=== PATIENT | female | born 1960 | race Caucasian/White ===

== ENCOUNTER → 2021-01-31 16:57 | Outpatient (CLI) | payer OTHER, SELFPAY ==
[2021-01-31 17:41] LABS: UR Morphine/Opiate cutoff 300 Negative (Negative); Ur Creatinine Normal (Normal); Ur Specific Gravity Normal (Normal); Urine Amphetamines Negative (Negative); Urine Cocaine Negative (Negative); Urine Methamphetamines Negative (Negative); Urine Phencyclidine Negative (Negative); Urine Tetrahydrocannabinol Negative (Negative); Urine pH Normal (Normal)
[2021-01-31 17:42] LABS: Urine Barbiturates Negative (Negative); Urine Benzodiazepines Negative (Negative); Urine MDMA Negative (Negative); Urine Methadone Negative (Negative); Urine Oxycodone Negative (Negative); Urine Tricyclic Antidepressant Negative (Negative)
== END ==
PROVIDERS: Family Provider Physician Assistant; PCP Registered Nurse Diabetes Educator; Referring Provider Registered Nurse Diabetes Educator; Visit Provider Registered Nurse Diabetes Educator
DX: Z51.81 Encounter for therapeutic drug level monitoring (principal); Z79.891 Long term (current) use of opiate analgesic
CPT/HCPCS: 80305

== ENCOUNTER → 2022-09-09 10:59 | Outpatient (CLI) | payer OTHER, SELFPAY ==
[2022-09-09 12:17] LABS: COVID19 -Nasal RAPID Negative (Negative)
== END ==
PROVIDERS: Family Provider Physician Assistant; PCP Registered Nurse Diabetes Educator; Visit Provider Registered Nurse Diabetes Educator
DX: R06.02 Shortness of breath (principal); R05.9 Cough, unspecified; R51.9 Headache, unspecified
CPT/HCPCS: 87635

== ENCOUNTER → 2022-09-09 11:15 | Outpatient (CLI) | payer OTHER, SELFPAY ==
--- NOTE | 2022-09-09 11:19 | DI.RAD.S_ITS ---
PROCEDURE: XR CHEST 2V INDICATIONS: eval BLL rales, SOB, R/O pnemonia TECHNIQUE: 2 views of the chest were acquired. COMPARISON: None. FINDINGS: Surgical changes and devices: None. Lungs and pleura: Reticulonodular airspace opacity in the lung bases. Increased interstitial markings in the central/perihilar lungs. Cephalization of pulmonary vessels. No pleural effusions or pneumothorax. Mediastinum: Mediastinal contours are normal. Heart size is normal. Bones and chest wall: No suspicious bony abnormalities. Soft tissues appear unremarkable. IMPRESSION: Findings of mild pulmonary vascular congestion with mild to moderate interstitial edema. Patchy airspace opacity in the lower lobes could represent developing alveolar edema versus a superimposed infectious process. Correlate with CBC, BNP, and other lung auscultation findings. Dictated by: Daquan Gotti M.D. on 09/09/2022 at 12:10 Approved by: Daquan Gotti M.D. on 09/09/2022 at 12:11
== END ==
PROVIDERS: Family Provider Physician Assistant; PCP Registered Nurse Diabetes Educator; Referring Provider Registered Nurse Diabetes Educator; Visit Provider Registered Nurse Diabetes Educator
DX: R06.02 Shortness of breath (principal); R05.9 Cough, unspecified; R51.9 Headache, unspecified; R09.89 Other specified symptoms and signs involving the circulatory and respiratory systems; Z20.822 Contact with and (suspected) exposure to COVID-19
CPT/HCPCS: 71046; 87635

== ENCOUNTER → 2022-12-03 13:13 | Outpatient (CLI) | payer OTHER, SELFPAY ==
[2022-12-03 13:55] LABS: Appearance Urine UA SL CLOUDY; Bilirubin Urine UA NEGATIVE (NEGATIVE); Color Urine UA YELLOW; Glucose Urine UA NEGATIVE (Negative); Ketones Urine UA TRACE (NEGATIVE); Leukocyte Esterase Urine UA 2+ (NEGATIVE); Nitrite Urine UA NEGATIVE (Negative); Occult Blood Urine UA 2+ (Negative); Protein Urine UA 1+ (Negative); Urobilinogen Urine UA 0.2 E.U./dL (0.2)
[2022-12-03 13:57] LABS: Add Manual Diff / Slide Review NO; Basophils Absolute Auto 100 /uL (0-100); Basophils Percent Auto 0.8 % (0-2); Eosinophils Absolute Auto 200 /uL (0-450); Eosinophils Percent Auto 2.8 % (2-4); Hematocrit 36.5 % (36-46); Hemoglobin 12.1 g/dL (12.0-16.0); Lymphocytes Absolute Auto 2100 /uL (1100-4500); Lymphocytes Percent Auto 24.8 % (25-40); Mean Corpuscular HGB Conc 33.3 % (30-36); Mean Corpuscular Volume 96.1 fL (80-100); Monocytes Absolute Auto 700 /uL (0-900); Monocytes Percent Auto 8.2 % (3-14); Neutrophils Absolute Auto 5200 /uL (1500-7000); Neutrophils Percent Auto 63.4 % (50-75); Platelet Count 425 X10^3/uL (150-400); Red Blood Cell Count 3.79 X10^6/uL (4.0-5.2); Red Cell Distribution Width 13.9 % (11.6-14.8); White Blood Cell Count 8.3 X10^3/uL (4.5-11.0)
[2022-12-03 14:07] LABS: Hemoglobin A1C% w Est Avg Glu 5.5 % (4.0-6.0)
[2022-12-03 14:08] LABS: Bacteria Urine Many (>30); Culture Indicated Urine Specimen Cultured; RBC Urine 1-5/HPF (0-5/HPF); Squamous Epithelial Cell Urine 1-5 /HPF (0-5/HPF); WBC Urine 30-100/HPF (0-5/HPF)
[2022-12-03 14:12] LABS: BUN Creatinine Ratio 27.7 (6-22); Blood Urea Nitrogen 31 mg/dL (7-17); Calcium 9.5 mg/dL (8.4-10.2); Carbon Dioxide 30 mmol/L (22-32); Chloride 96 mmol/L (98-107); Estimated Glomerular Filt Rate 56 mL/min (>60); Glucose 100 mg/dL (80-110); HEMOLYSIS < 15 (0-50); Potassium 3.5 mmol/L (3.4-5.1); Sodium 139 mmol/L (137-145)
[2022-12-03 14:22] LABS: COVID19 -Nasal RAPID Negative (Negative)
== END ==
PROVIDERS: Family Provider Physician Assistant; PCP Registered Nurse Diabetes Educator; Referring Provider Orthopaedic Surgery; Visit Provider Orthopaedic Surgery
DX: Z01.818 Encounter for other preprocedural examination (principal); Z01.812 Encounter for preprocedural laboratory examination; R73.9 Hyperglycemia, unspecified; N39.0 Urinary tract infection, site not specified; Z20.822 Contact with and (suspected) exposure to COVID-19
CPT/HCPCS: 36415; 80048; 81001; 83036; 85025; 87077; 87086; 87186; 87635; 93005; 93010; C9803

== ENCOUNTER 2022-12-05 12:11 | Day surgery (SDC) | payer OTHER, SELFPAY ==
[2022-12-03 08:40] VITALS: BMI 44.4
[2022-12-05] VITALS (11 sets, daily range): BP systolic 98–129; BP diastolic 42–75; PULSE 81–94; RESP 12–19; TEMP 35.3–36.6; O2SAT 91–95; BMI 44.4
[2022-12-05] MEDS: PREGABALIN 75 MG CAPSULE PO (13:03)
[2022-12-05] MEDS: CELECOXIB 200 MG CAPSULE PO (13:03)
[2022-12-05] MEDS: ACETAMINOPHEN 325 MG TABLET 975 MG PO (13:03)
[2022-12-05] MEDS: LACTATED RINGERS 1,000 ML 42 ML IV ×2 (13:13→16:51)
[2022-12-05] MEDS: VANCOMYCIN 1,000 MG/200 ML PIGGYBACK 200 MG IV (13:19)
--- NOTE | 2022-12-05 14:00 | DI.RAD.S_ITS ---
PROCEDURE: XR PELVIS 1-2V INDICATIONS: prosthesis placement TECHNIQUE: Intra-operative view of the pelvis and hip acquired. COMPARISON: None. FINDINGS: Bones: Intraoperative devices prior to placement of arthroplasty prostheses are in expected positions. No fractures or suspicious bony lesions. Soft tissues: Overlying surgical retractors are present, along with other intraoperative changes. IMPRESSION: Left total hip arthroplasty in progress Approved by: Serjio Polo M.D. on 12/06/2022 at 14:40
--- NOTE | 2022-12-05 14:46 | P.OP_ITS ---
Operative Date/Time/Diagnoses Date of procedure: 12/05/22 Time of procedure: 14:50 Pre-op diagnosis: Severe left hip osteoarthritis, morbid obesity Post-op diagnosis: same Procedure & Clinicians Procedure: Left total hip arthroplasty posterior approach Same procedure as scheduled: Yes Indications: The patient has had progressively worsening left hip pain with radiographic changes consistent with arthritis. Non-operative management has failed and the patient has requested total hip replacement. The risks, benefits and alternatives to surgery were discussed with the patient prior to proceeding. Risks discussed included, but were not limited to, failure to relieve pain, leg length discrepancy, dislocation, stiffness, infection, nerve damage, deep venous thrombosis, pulmonary embolism, stroke, coma, heart attack, permanent paralysis and , as well as the potential need for eventual revision of the prosthetic. Surgeon: Faiza Dillon Biodiesel Processing Technician: Dodie Damon Anesthesia Type: General and Spinal Operative Notes Findings: Severe left hip arthritis, adequate stability Closure Type: primary Specimen(s): none sent Prosthetic devices, grafts, tissues, transplants, or devices: Dillon [employer] Nephew size 48 R3 cup, Synergy size 10 femoral component, neutral poly liner, one 6.5 mm screw, 32 x +0 Oxinium femoral head Estimated Blood Loss (mL): 250 Blood products transfused: none Procedure in detail: The patient was seen in the pre-operative area, where the patient identified the left hip as the operative site and this was marked with my initials. The patient received pre-operative antibiotics and was taken to the operating room and placed on the operative table in the right lateral decubitus position after satisfactory anesthesia. A time clock repairer out was performed. The left leg was prepared from the ankle to the iliac crest with ChloroPrep in the usual fashion and draped through sterile drapes. The hip was approached through an approximately 20 cm incision centered over the greater trochanter and curving gently posteriorly as it went proximally. This was carried sharply to the fascia letty, which was divided and retracted with a self retaining retractor. The trochanteric bursa was excised with care being taken to avoid the sciatic nerve, which was identified and protected throughout the case. The short external rotators were incised and the capsulomuscular flap was raised and tagged for later repair. The hip was dislocated, and a femoral neck osteotomy performed approximately 15 mm above the lesser trochanter. Meticulous incision was made and meticulous hemostasis was performed. She did have substantial subcutaneous tissues. Retractors were placed around the femur. The canal was opened with a box cutting osteotome, followed by a T handled reamer and a lateralizing reamer. The canal was reamed up to size was then used, followed by sequential broaching until there was good stability of the broach in the femur. Retractors were placed to expose the acetabulum. The labrum and central soft tissues were removed. Reaming was performed initially going up in 2 mm increments, then 1 mm increments until good bite was obtained with an odd sized reamer. The cup 1 mm larger than the last reamer was then inserted using the appropriate anteversion guides. It was further stabilized with a single screw. A trial neutral liner was placed. The broach was placed in the canal. A trial head and neck were then placed and the hip relocated and checked for leg length and stability. An intraoperative film confirmed the component position and no evidence of fracture. The patient was stable in the position of sleep, of squatting, and could be put through a range of motion with 45 degrees internal rotation without dislocation. At 90 degrees flexion, internal rotation to 70? was possible before dislocation. This was felt to be satisfactory and the appropriate components were opened, and the trials were removed. There was min a minimal crack along the femoral neck residual which did not extend to the level of the lesser trochanter or calcar. The acetabular liner was impacted into position. The final stem was then impacted into the prepared femoral canal. A brief Betadine soak was performed while trialing with head options. The hip was meticulously irrigated with normal saline. Finally the femoral head was impacted onto the stem. The acetabulum was cleared of all material and the hip relocated one final time. The capsulomuscular flap was then repaired to the greater trochanter though an awl hole using the tag sutures. The short external rotators were repaired with a nonabsorbable suture. A deep drain was placed and brought out anteriorly. The fascia letty was closed with Vicryl. The subcutaneous layer was closed with barbed sutures and skin daniela. A richard dressing was applied and the patient was taken to recovery having tolerated the procedure well. Complications: none Post-operative Condition: stable Disposition: Acute Care Plan for aftercare: The patient will be maintained on a standard total hip replacement protocol with weight bearing as tolerated and posterior hip precautions. The patient will receive Aspirin and sequential compression devices for DVT prophylaxis. The patient will be discharged home when safe for the home environment.
--- NOTE | 2022-12-05 14:46 | PM.PREOP ---
Pre-operative Note COVID-19 COVID-19 status: Negative Interval Note History & Physical reviewed/Exam performed by Physician: Yes Changes to H&P: No H&P completed within 30 days and has changed as indicated here:: patient is doing well, no recent pulmonary problems
--- NOTE | 2022-12-05 14:56 | SUR.OPER ---
Lateral on padded OR bed. Gel axillary roll. Arms secured on padded armboard with pillow supporting top arm. Padded hip positioner braces x4 - anterior and posterior chest and pelvis. Additional gel pad used anterior pelvis. Gel pad under bottom leg from knee to foot and secured with tape over sheet.
[2022-12-05] MEDS: CEFAZOLIN 2 GM/100 ML PREMIX 100 ML IV ×2 (15:03→21:10)
[2022-12-05] MEDS: TRANEXAMIC ACID 1,000 MG VIAL 1000 MG INJ ×2 (15:53→17:22)
[2022-12-05] MEDS: BUPIVACAINE 0.5% W/ EPI (PF) 30 ML VIAL INJ (15:54)
[2022-12-05] MEDS: BUPIVACAINE LIPOSOME 266 MG/20 ML VIAL INJ (15:55)
[2022-12-05] MEDS: EPINEPHrine 1 MG/ML IRR (17:27)
--- NOTE | 2022-12-05 17:27 | DI.RAD.S_ITS ---
PROCEDURE: XR HIP W PEL IF DONE LT 2V INDICATIONS: TOTAL LEFT HIP ARTHROPLASTY TECHNIQUE: AP pelvis and lateral view of the left hip acquired. COMPARISON: None. FINDINGS: Bones: Patient is status post left total hip arthroplasty, with hardware components in expected positions. The hip joint appears congruent. The visualized bony structures appear intact. Soft tissues: Overlying postoperative changes are noted. No suspicious soft tissue densities. IMPRESSION: Status post left total hip arthroplasty without evidence for acute hardware complication. Dictated by: Gerald Castillo M.D. on 12/05/2022 at 20:23 Approved by: Gerald Castillo M.D. on 12/05/2022 at 20:23
[2022-12-05] MEDS: BACITRACIN 28 GM OINT 1 APPLIC TOP (17:28)
[2022-12-05] MEDS: ONDANSETRON 4 MG/2 ML INJ IV (18:43)
[2022-12-05] MEDS: OXYCODONE IR 5 MG TABLET PO (18:43)
--- NOTE | 2022-12-05 19:11 | SUR.PHASEI ---
1856 report called to Dolly CARDENAS, no changes to exam
--- NOTE | 2022-12-05 19:50 | PC.NURSE ---
Pt arrived to Room 218 at 1902 this evening. A&Ox4, VSS, afebrile on RA. CHERIE goldberg, c/d/i. +CMS to RLE. Offered sips of water. Reviewed hip precautions, oriented to room. Reported off, endorsed admission to oncoming RN.
[2022-12-05] MEDS: IBUPROFEN 400 MG TABLET PO ×2 (20:30→23:11)
[2022-12-05] MEDS: METOPROLOL ER 25 MG TABLET 37.5 MG PO (20:30)
[2022-12-05] MEDS: ATORVASTATIN 20 MG TABLET PO (20:31)
[2022-12-05] MEDS: LACTATED RINGERS 1,000 ML 125 ML IV (20:31)
[2022-12-05] MEDS: CYCLOBENZAPRINE 10 MG TABLET PO (20:31)
[2022-12-05] MEDS: ACETAMINOPHEN 325 MG TABLET 650 MG PO ×2 (20:31→23:11)
[2022-12-05] MEDS: DOCUSATE 100 MG CAPSULE PO (20:31)
[2022-12-05] MEDS: ASPIRIN EC 81 MG TABLET PO (20:31)
[2022-12-05] MEDS: OXYCODONE IR 10 MG TABLET PO (21:15)
[2022-12-06] MEDS: OXYCODONE IR 10 MG TABLET PO ×3 (02:19→14:51)
[2022-12-06 03:20] VITALS: BP 114/45; PULSE 89; RESP 19; TEMP 36.2; O2SAT 96
--- NOTE | 2022-12-06 04:27 | PC.NURSE ---
Pt is Axox4, needs 2 person assistance to the bathroom with FWW. Pt voided and drinking well. Pt c/o pain and recieved PRN PO Oxy 10 x2 with good effect. Otherwise, no changes. continue monitor.
[2022-12-06] MEDS: ACETAMINOPHEN 325 MG TABLET 650 MG PO ×2 (05:08→12:30)
[2022-12-06] MEDS: CEFAZOLIN 2 GM/100 ML PREMIX 100 ML IV (05:08)
[2022-12-06] MEDS: IBUPROFEN 400 MG TABLET PO ×2 (05:08→12:30)
[2022-12-06 05:20] LABS: Hematocrit 27.8 % (36-46); Hemoglobin 9.7 g/dL (12.0-16.0)
--- NOTE | 2022-12-06 06:56 | PM.DS.1 ---
History of Present Illness History of Present Illness Date Patient Seen: 12/06/22 Time Patient Seen: 06:56 Chief complaint: OPB Narrative: Operative Date/Time/Diagnoses Date of procedure: 12/05/22 Time of procedure: 14:50 Pre-op diagnosis: Severe left hip osteoarthritis, morbid obesity Post-op diagnosis: same Procedure & Clinicians Procedure: Left total hip arthroplasty posterior approach Same procedure as scheduled: Yes Indications: The patient has had progressively worsening left hip pain with radiographic changes consistent with arthritis. Non-operative management has failed and the patient has requested total hip replacement. The risks, benefits and alternatives to surgery were discussed with the patient prior to proceeding. Risks discussed included, but were not limited to, failure to relieve pain, leg length discrepancy, dislocation, stiffness, infection, nerve damage, deep venous thrombosis, pulmonary embolism, stroke, coma, heart attack, permanent paralysis and , as well as the potential need for eventual revision of the prosthetic. Surgeon: Faiza Dillon Electrical Appliance Repairer: Dodie Damon Anesthesia Type: General and Spinal Operative Notes Findings: Severe left hip arthritis, adequate stability Closure Type: primary Specimen(s): none sent Prosthetic devices, grafts, tissues, transplants, or devices: Dillon [employer]hew size 48 R3 cup, Synergy size 10 femoral component, neutral poly liner, one 6.5 mm screw, 32 x +0 Oxinium femoral head Estimated Blood Loss (mL): 250 Blood products transfused: none Discharge Providers Provider Discharge Date: 12/06/22 Primary care physician: LALITHA Peguero Consults: 12/05/22 06:00 Consult to Anesthesiology Routine Comment: Consulting Provider: Anesthesiologist Reason for consultation: Regional block for post operative pain control 12/05/22 19:32 Consult to Discharge Planning Routine Comment: Consult to Physical Therapy Evaluate & Treat Comment: Physician Instructions: post op RONA protocol Discharge provider: Aranza Jimenes PA-C Summary Hospital Course Discharge Diagnosis: Severe left hip osteoarthritis, s/p left total hip arthroplasty Hospital Course: Ms Rosales's hospital course was unremarkable. On POD# 1 she was feeling well and wanted to go home. She was eating and voiding without difficulty. She had not yet been evaluated by PT. Her pain was well-controlled with oral medication. Exam Vital Signs (past 8 hours): - 12/05/22 23:07 12/05/22 23:10 12/06/22 03:20 Temperature 97.2 F L Pulse Rate 85 88 89 Respiratory Rate 19 19 Blood Pressure 110/46 L 110/46 L 114/45 L Pulse Oximetry 94 96 Oxygen Flow Rate 0 0 Oxygen Delivery Method Room Air Oxygen Flow Rate 0 Narrative Exam Narrative: 5/5 strength in hip flexors, quadriceps, hamstrings, DF, PF, EHL on left. Sensation to light touch intact throughout LLE. Calves soft, compressible, nontender and without palpable cords or masses. CHERIE dressing CDI; dressing was not active upon my visit and was reset and functional without further intervention. Objective Labs Result Diagrams: 12/06/22 04:50 Labs: Laboratory Results - last 24 hr 12/06/22 04:50 Hgb 9.7 L Hct 27.8 L PFSH Medical History (Updated 12/03/22 @ 08:49 by Lashonda Harrell RN) BMI 40.0-44.9, adult Chronic hip pain Chronic low back pain with sciatica Chronic, continuous use of opioids COVID-19 virus infection (11/14/22) Surgical History Status post arthroscopy Social History household members: spouse Smoking Status: Current every day smoker Tobacco: How many years used: 40 quit status: considering quitting (I am taking Wellbutrin to stop smoking Gave patient a smoking cessation handout.) second hand exposure: No alcohol intake: current substance use type: does not use Discharge Assessment & Plan Assessment and Plan Assessment: Severe left hip osteoarthritis, s/p left total hip arthroplasty Plan of Treatment: Discharge home after PT if PT agrees. Pt has post-op meds at home. ASA 81 mg BID for VTE prophylaxis, outpt PT, f/u in office in 2 weeks. Discharge Plan Discharge Plan Patient Disposition: Home Discharge orders & Medications Discharge Orders: Discharge (Order); Ordered 12/06/22 Ordered By: Aranza Jimenes Prescriptions: Continued DuoNeb 1 each INHALATION Q4HP PRN (Reason: shortness of breath) Qty: 50 3RF ascorbic acid (vitamin C) 500 mg tablet 500 mg PO DAILY cholecalciferol (vitamin D3) 1,000 unit capsule 1,000 unit PO DAILY vitamin B complex [B Complex-Vitamin B12] 1 EACH tablet 1 tab PO QDAY Qty: 0 benzonatate 200 mg capsule 200 mg PO TID PRN (Reason: cough) Qty: 30 1RF ipratropium-albuterol 0.5 mg-3 mg(2.5 mg base)/3 mL solution for nebulization 3 ml inhalation Q4-6H PRN (Reason: shortness of breath or wheezing) Qty: 180 3RF hydrocodone-acetaminophen 7.5-325 mg tablet 1 tab PO Q6H PRN (Reason: pain (scale score 7-10)) Qty: 90 0RF bupropion HCl [Wellbutrin SR] 150 mg tablet sustained-release 12 hr 300 mg PO QDAY Qty: 180 1RF Advair HFA 230-21 mcg/actuation HFA aerosol inhaler 2 puff inhalation BID Qty: 36 1RF metoprolol succinate [Toprol XL] 25 mg tablet extended release 24 hr 37.5 mg PO BID Qty: 270 3RF omeprazole 20 mg capsule,delayed release(DR/EC) 20 mg PO DAILY Qty: 90 3RF cyclobenzaprine 10 mg tablet 10 mg PO BEDTIME PRN (Reason: muscle spasm) Qty: 90 1RF naproxen [Naprosyn] 500 mg tablet 500 mg PO BIDCC PRN (Reason: pain) Qty: 180 1RF methocarbamol 750 mg tablet 1,500 mg PO BID PRN (Reason: muscle spasm) Qty: 360 1RF lidocaine 5 % adhesive patch,medicated 3 patch topical DAILY Qty: 90 3RF Rx Instructions: leave on most painful area for up to 12 hrs albuterol sulfate [Ventolin HFA] 90 mcg/actuation HFA aerosol inhaler 2 puff INHALATION Q4-6HP PRN (Reason: shortness of breath) Qty: 2 5RF atorvastatin [Lipitor] 20 mg tablet 20 mg PO HS Qty: 90 3RF hydrochlorothiazide 25 mg tablet 25 mg PO QDAY PRN (Reason: edema) Qty: 90 3RF cyclobenzaprine 10 mg Tablet 10 mg PO BEDTIME cephalexin 500 mg Capsule 500 mg PO QID Follow up/Referrals: Cheng Horton ARNP [Primary Care Provider] - Faiza Dillon MD [Physician] - As previously scheduled (Follow up with Dodie Damon PA-C, on 12/19/2022 @ 3:10 pm at [facility] in [place].) Diet/Activity/Treatments Diet: Diet as Tolerated Activity: Weight bearing as tolerated to left leg. Posterior hip precautions. Cold/Heat Therapy: Ice to hip as needed for pain. Skin/Wound/Dressing Care Report to your healthcare provider any signs of infection, such as:: chills, fever, night sweats, unusual drainage and unusual redness Dressing: May shower; leave CHERIE dressing in place until follow up in office. In 5-7 days, battery light will start blinking red. At that point, you can cut off the battery pack and dispose of it. No bathing or otherwise soaking incision. Call the office if the dressing becomes saturated inside. Visit Report/Discharge Packet Instructions: DI for Hip Replacement Stand Alone Forms: Surgery Discharge Discharge Data Primary Care Provider: Cheng Horton Attending Provider: Faiza Dillon VTE Deep Vein Thrombosis/Pulmonary Embolism Present on Admission: No
[2022-12-06] MEDS: DOCUSATE 100 MG CAPSULE PO (08:51)
[2022-12-06] MEDS: ASPIRIN EC 81 MG TABLET PO (08:51)
[2022-12-06] MEDS: ASCORBIC ACID 500 MG TABLET PO (08:51)
[2022-12-06 08:52] VITALS: BP 107/41; PULSE 88; RESP 16; TEMP 36.5; O2SAT 100
[2022-12-06] MEDS: CHOLECALCIFEROL (VITAMIN D3) 1,000 UNIT TABLET 1000 UNIT PO (08:53)
[2022-12-06] MEDS: buPROPion SR 150 MG TAB 300 MG PO (08:53)
[2022-12-06] MEDS: PANTOPRAZOLE DR 20 MG TABLET PO (08:56)
[2022-12-06] MEDS: methocarbamoL 500 MG TABLET 1500 MG PO (08:57)
[2022-12-06] MEDS: LIDOCAINE PATCH 1 EACH ADH..PATCH 3 EACH TOP (08:59)
[2022-12-06 09:30] VITALS: BP 104/55; PULSE 66
--- NOTE | 2022-12-06 09:45 | PT.IIE ---
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, left hip (12/05/22) Surgery Performed Operation Date: 12/05/22 14:00 Actual Procedures p Total Hip Arthroplasty Posterior(Left) - Faiza Dillon MD Surgical History (Last Reviewed 09/09/22 @ 18:28 by LALITHA Peguero) Status post arthroscopy Medical History (Last Updated 12/03/22 @ 08:49 by Lashonda Harrell RN) BMI 40.0-44.9, adult Chronic hip pain Chronic low back pain with sciatica Chronic, continuous use of opioids COVID-19 virus infection (11/14/22) Physical Therapy Inpatient Evaluation/Re-Eval M1 PT/OT-IP Prior Functional Status Start: 12/06/22 14:02 Freq: NEEDED Status: Active Protocol: Document 12/06/22 09:45 AB (Rec: 12/06/22 14:15 AB [id number]) Medical Review Prior Functional Status Medical History Reviewed Yes Communication able to make needs known Mobility and Gait pt sated that she is independent with all mobilities and ambulation using a hurrycane Social History Household Members spouse,family Living Arrangements House Number of Floors (Floors) One Floor Number of Stairs To Enter/Railing? 3 steps B rails to enter the house Home Environment Standard Height Toilet,Built- In Shower Seat Home Equipment Front Wheel Walker,Four Wheel Walker,Bedside Commode,Grab Bars In Shower Additional Social History Comment pt has a hurrycane M2 PT-IP Current Condition Start: 12/06/22 14:02 Freq: NEEDED Status: Active Protocol: Document 12/06/22 09:45 AB (Rec: 12/06/22 14:15 AB [email or web address]) Physical Therapy Current Condition Current Condition Evaluation Date 12/06/22 Treatment Diagnosis s/p L RONA posterior approach; difficulty in walking Onset Date 12/05/22 M3 PT-IP Subjective Start: 12/06/22 14:02 Freq: NEEDED Status: Active Protocol: Document 12/06/22 09:45 AB (Rec: 12/06/22 14:15 AB [email or web address]) Subjective Physical Therapy Visit Type Type Initial Evaluation Visit Start Time 09:45 Visit Stop Time 11:02 Total Visit Minutes 77 Number of YARN DRY ROOM WORKER Visits 0 Physical Therapy Visit Comments Patient Comments agreeable to do PT Therapy Pain Assessment Pain When Pain Assessed At Rest Pain Present Pain Present Pain Reported Location Left Hip Intensity 6 Scale Used Numeric (0 - 10) Pain Management Techniques Distraction,Modification of Treatment,Re-positioning, Timing of Activity with Medications M4 PT-IP Mobility and Gait Start: 12/06/22 14:02 Freq: NEEDED Status: Active Protocol: Document 12/06/22 09:45 AB (Rec: 12/06/22 14:15 AB [email or web address]) PT-Bed Mobility Assessment Rolling Level of Assist Standby Assistance PT-Transfer Assessment Sit to and From Stand Sit to and from Stand Standby Assistance Equipment Transfer Assistive Device Gait Belt,Front Wheeled Walker Orthotic/Prosthetic Devices or Brace: No Transfers Transfer Destination Chair Transfer Technique Stand Step Pivot Transfer Ability Level of Assist Standby Assistance,1 Person Assistance,Use of Upper Extremities Comments Mobility Comments educated pt on posterior hip precautions and pt able to recall. pt completed supine to sit SBA. sit to stand SBA and step transfer to chair using FWW SBA. pt requested to have a brief on and assisted. able to completed sit to stand from chair SBA and initial cues for hip precautions but able to complete without cues on succeeding sit to stand. pt able to maintain standing using FWW for support while managing hygiene care and brief. pt ambualted in the hallway using FWW ~ 100 ft SBA . stair climbing training conducted. pt completed up/ down steps using B rails SBA. assisted pt back to her room. pt requested to go back to the bed. stated that she did not sleep well at night and wants to take a nap. pt ambulated from the w/c to the bed sBA using FWW. completed sit to supine SBA and cues for techniques. call light and table placed within reach. Gait Assessment Gait Gait Assistance Required: Standby Assistance Distance (Feet) 100 Able to Maintain Weight Bearing Status Yes During Gait Assistive Devices Assistive Device Gait Belt,Front Wheeled Walker Orthotic/Prosthetic Devices or Brace: No Gait Deviations General Gait Pattern Antalgic,Decreased Stride Length,Decreased Feet Clearance Factors Limiting Gait Function Factors Limiting Gait Function Decreased Activity Tolerance, Decreased Strength,Difficulty Following Directions,Limited Range of Motion,Pain,Poor Balance Stair Climbing Assessment Evaluation Level of Assist On Stairs Standby Assistance Devices Stair Climbing Assistive Devices Left Railing,Right Railing Technique/Endurance Stair Climbing Direction Ascend and Descend Stair Climbing Technique Step to Step Number of Steps Climbed 3 Query Text: Stair Climbing Set # Repetitions (reps) 1 PT-Balance Assessment Sitting Balance and Reactions Static Sitting Balance Ability Normal Dynamic Sitting Balance Ability Good Standing Balance and Reactions Static Standing Balance Ability Fair Dynamic Standing Balance Ability Fair Device Used FWW M5 PT-IP Objective Assessments Start: 12/06/22 14:02 Freq: NEEDED Status: Active Protocol: Document 12/06/22 09:45 AB (Rec: 12/06/22 14:15 AB [email or web address]) Orientation Orientation/Cognition Level of Alertness Alert Orientation Name,Situation Language Function Ability No Deficits Noted Safety Awareness Understands Safety Issues Memory Description No Deficits Noted Gross Range of Motion Lower Extremity ROM Assessment Within Functional Limits Strength Lower Extremity Strength Assessment Left Impaired Hip 3+/5 Knee 4-/5 Sensation Assessment Sensation Gross Sensation WNL Muscle Tone Muscle Tone WNL Yes M6 PT-IP Treatment Start: 12/06/22 14:02 Freq: NEEDED Status: Active Protocol: Document 12/06/22 09:45 AB (Rec: 12/06/22 14:15 AB [email or web address]) Physical Therapy Treatment Education Education Provided Precautions,Weight Bearing Status,Post-Op Packet,Safety M7 PT-IP Assessment and Plan Start: 12/06/22 14:02 Freq: NEEDED Status: Active Protocol: Document 12/06/22 09:45 AB (Rec: 12/06/22 14:15 AB [email or web address]) PT Summary Assessment and Plan Potential Rehabilitation Potential Good Status of Condition at Evaluation Stable Summary Impairments Pain,ROM,Strength,Balance, Coordination,Sensation,Tone, Cognition,Bed Mobility, Transfers,Gait,Activity Tolerance Assessment Summary pt requiring SBA with mobility and is aware of her precautions. pt stated that her spouse will be able to assist her at home and she will be able to direct spouse on assisting her and declined caregiver training. pt will also have her daughter and grand daughters at home to assist if needed. pt plans to go home today. Goals Bed Mobility Goal Independent Transfer Goal Independent,Front Wheeled Walker Gait Goal Independent,Front Wheel Walker Gait Distance 150 Other Goals up/down 3 steps B rails mod I Days to Meet Goals 3 Frequency of Treatment Frequency Of Treatment Twice a Day Treatment Plan Physical Therapy Treatment Plan Bed Mobility Training,Transfer Training,Gait Training, Therapeutic Exercise,Balance Retraining,Post Op Education, Discharge Planning,Hot or Cold Pack,Neuromuscular Re-ed, Coordination Retraining,Manual Therapy Precautions Posterior Hip Precautions No Hip Flexion > 90 degrees,No Hip Internal Rotation,No Hip Adduction Weight Bearing Status Weight Bearing Status Weight Bear as Tolerated Allowed Weight Bearing Amount (enter % LLE WBAT or #) (%) Recommendations To Nursing Amount of Assist Needed Standby Assistance Discharge Recommendations PT Discharge Recommendations Home with Assistance, Outpatient PT Transportation Needs at Discharge Private Vehicle
--- NOTE | 2022-12-06 14:21 | CM.DANOTE ---
Patient is a 62 yo female who was admitted on 12/05/22 for LTHA. Pt has [employer] for insurance and her PCP is Cheng Horton. EMR was reviewed. Per Ortho, pt tolerated surgery well and medically stable for d/c home today pending PT eval and recommendations. Per PT, recommending d/c home with family assist and outpt PT. SW met bedside with pt briefly and explained role and she confirms she lives at home in [place] with her spouse and also adult Dtr and granddtrs. Pt is active and independ at baseline and uses a cane for longer distances leading up to her surgery. Pt denies any HH or SNF and preference is home with spouse and adult Dtr assist today and spouse plans to provide transport home. Pt does not anticipate any needs. Plan: Patient to d/c home today via spouse POV and family assist and outpt PT. No further SW needs at this time. MÓNICA Winslow Discharge Planning/Care Management CM Discharge Assessment Start: 12/06/22 14:20 Freq: Status: Active Protocol: Document 12/06/22 14:20 BF (Rec: 12/06/22 14:21 BF [id number]) Discharge Planning Assessment Assigned Welt Insole Channeler MÓNICA Wheeler DPOA/Assigned Designee Name spouse Crow Contact Information [phone] Advance Directives? No Advance Directives on File No History Provided By Patient,Medical Record Has Patient been admitted in last 30 No days? Prior Living Arrangements House Household Members spouse,family Type of transporation used prior to Drives own vehicle admit Independent with ADL's Yes Is patient alert and oriented? Yes Caregiver for Another No Community Services used prior to Physical Therapy admission: DME Already Rented / Owned Cane Patient/Family Preference OP PT Therapy Barriers to Discharge No Discharge Plan Home Community Services Physical Therapy Transportation Arrangement Spouse plans to provide transport today Referrals Initiated None needed Whiteboard Updated in Patient Room with Yes name and ext. # of Welt Insole Channeler Review Status In Process Please Provide Date Initial DC 12/06/22 Assessment Was Performed Next Review Type Continued Stay Review Pre-Anesthesia Assessment Start: 12/03/22 08:40 Freq: Status: Active Protocol: Document 12/03/22 08:40 CAB (Rec: 12/03/22 08:56 CAB [id number]) Pre-Anesthesia Assessment PAC Comment Pt had Covid 11/14/22. Pt is vaccinated and 1 booster, states symptoms were mild. Spoke with pt regarding 4 week s/p covid for surgery. Notified Dr. Dillon's office. Dr. Iqbal spoke with patient , counselled her on meds to take/not take and notified Dr. Dillon's office ok to proceed with surgery as scheduled. Patient Information Reviewed Via Chart Review Comment No labs/ECG, COVID screen identified Primary Care Provider Cheng Horton Seen Specialist in Last 12 Months Yes Specialist Seen Orthopedist Primary Language Japanese Negative Developer Required No Height 160.02 cm Weight 113.852 kg Body Mass Index (BMI) 44.4 Anesthesia Review Requested No alcohol intake current Smoking Status Current every day smoker Tobacco type e-cigarettes how long ago did patient quit smoking Currently smoking and vaping Pain Present Pain Reported Patient is completely paralyzed or No completely immobile Mental Status Oriented to own ability Does patient have SUMMERS/SOB Yes Comment Hx COPD, current every day smoker Currently Taking a Beta Roscoe Yes: Metoprolol Hx SOB Yes Anti-Coagulant Therapy No Hx Pacemaker/ICD No Pacemaker Rep Required? No Urinary Catheter Present No Hx Urinary Self Catheterization No Diabetes No Patient No Lactating No Have you had any close contact with Yes: Pt Covid + 11/14/22 someone diagnosed with COVID-19? Received a COVID vaccine? Yes: 1 booster Marital Status Lives With spouse Patient Discharge Plan Description Return Home
--- NOTE | 2022-12-06 17:41 | PC.NURSE ---
Pt is A&OX3, VSS, afebrile on RA. BP slightly low however patient denies dizziness this a.m. Metoprolol held. Patient was cleared for discharge home with ortho PA this a.m. pending PT. She is able to participate with PT and ambulate with SBA using FWW. She is cleared for discharge home per PT. She reports her pain level is elevated pretty intentse after ambulating she rates pain 7/10 and states it is tolerable at 5/10 after prn 10 mg oxycodone this shift. She verbalizes understanding of medications, activity, hip precautions, site care, CHERIE dressing, s/sx of complication as well as follow up appointment scheduled postoperatively. At approximately 1620 this afternoon she is escorted via w/ch to private vehicle for discharge home with all of her personal belongings including FWW.
== END 2022-12-06 16:25 | disposition home or self-care (01) ==
LOC: OR 12:12 → AC 12:12
PROVIDERS: Family Provider Physician Assistant; PCP Registered Nurse Diabetes Educator; Referring Provider Orthopaedic Surgery; Visit Provider Orthopaedic Surgery
PROC: 0SRB0JZ Replacement of Left Hip Joint with Synthetic Substitute, Open Approach (ICD-10-PCS; CPT 27130; principal; 2022-12-05 14:00)
DX: M16.12 Unilateral primary osteoarthritis, left hip (principal); M70.62 Trochanteric bursitis, left hip; E66.01 Morbid (severe) obesity due to excess calories; Z68.41 Body mass index [BMI] 40.0-44.9, adult
CPT/HCPCS: 27130; 36415; 72170; 73502; 85014; 85018; 97161; 97530; C1776; A9270; C9290; J0171; J0690; J1170; J2405; J2704

== ENCOUNTER → 2024-03-02 16:24 | Outpatient (CLI) | payer OTHER, SELFPAY ==
[2022-12-05 12:35] VITALS: BMI 44.4
--- NOTE | 2024-03-02 16:27 | DI.RAD.S_ITS ---
PROCEDURE: XR CHEST 2V INDICATIONS: SOB w/ exercise outdoors, hx COPD TECHNIQUE: 2 views of the chest were acquired. COMPARISON: [facility], NEIL, CHEST 2 VIEW, 09/11/2016, 15:58. [facility], NEIL, XR CHEST 2V, 09/09/2022, 11:19. FINDINGS: Surgical changes and devices: None. Lungs and pleura: Diffuse prominent pulmonary markings, unchanged. No pleural effusions or pneumothorax. Mediastinum: Mediastinal contours are normal. Heart size is normal. Bones and chest wall: No suspicious bony abnormalities. Soft tissues appear unremarkable. IMPRESSION: Diffuse prominent pulmonary markings appear unchanged. This could be due to emphysematous change and/or bronchiectasis. Pulmonary vasculature engorgement is also a diagnostic consideration. Consider CT chest for further evaluation of the lung parenchyma. Dictated by: Todd Anderson M.D. on 03/03/2024 at 8:38 Approved by: Todd Anderson M.D. on 03/03/2024 at 8:45
[2024-03-02 17:18] LABS: Hematocrit 36.4 % (36-46); Hemoglobin 12.3 g/dL (12.0-16.0); Mean Corpuscular HGB Conc 33.9 % (30-36); Mean Corpuscular Hemoglobin 30.8 PG (26-34); Mean Corpuscular Volume 91.1 fL (80-100); Platelet Count 252 X10^3/uL (150-400); Red Cell Distribution Width 15.7 % (11.6-14.8); White Blood Cell Count 6.9 X10^3/uL (4.5-11.0)
[2024-03-02 17:32] LABS: D Dimer 440 ng/ml (<500)
[2024-03-02 17:33] LABS: Neutrophils Absolute Manual 4002 /uL (3000-5900); RBC Morphology Normal Morphology; Total Cells Counted 100
[2024-03-02 17:48] LABS: Alanine Aminotransferase 25 IU/L (<35); Albumin 4.1 g/dL (3.5-5.0); Albumin Globulin Ratio 1.2 (1.0-2.8); Alkaline Phosphatase 81 U/L (38-126); Aspartate Aminotransferase 22 IU/L (14-36); BUN Creatinine Ratio 22.6 (6-22); Bilirubin Total 0.7 mg/dL (0.2-1.3); Blood Urea Nitrogen 24 mg/dL (7-17); Calcium 9.3 mg/dL (8.4-10.2); Carbon Dioxide 28 mmol/L (22-32); Chloride 104 mmol/L (98-107); Estimated Glomerular Filt Rate 59 mL/min (>60); Globulin 3.3 g/dL (1.7-4.1); Glucose 89 mg/dL (80-110); HEMOLYSIS 19 (0-50); Potassium 4.5 mmol/L (3.4-5.1); Sodium 139 mmol/L (137-145); Total Protein 7.4 g/dL (6.3-8.2)
[2024-03-02 17:50] LABS: NT-proBNP (BNP-Adult 18+) 313 pg/mL (<125)
== END ==
PROVIDERS: Family Provider Physician Assistant; PCP Registered Nurse Diabetes Educator; Referring Provider Physician Assistant; Visit Provider Physician Assistant
DX: J44.9 Chronic obstructive pulmonary disease, unspecified (principal); R06.02 Shortness of breath
CPT/HCPCS: 36415; 71046; 80053; 83880; 85025; 85379

== ENCOUNTER 2024-03-09 11:44 | Day surgery (SDC) | payer OTHER, SELFPAY ==
[2022-12-05 12:35] VITALS: BMI 44.4
[2024-02-26 11:52] VITALS: BMI 47.5
[2024-03-09] VITALS (7 sets, daily range): BP systolic 105–117; BP diastolic 53–73; PULSE 78–95; RESP 13–24; TEMP 36.2–36.4; O2SAT 94–99; BMI 47.5
--- NOTE | 2024-03-09 | PATH_ITS ---
[facility] Accession Number: [id number] No. of containers..02 Tissue . 01 Material submitted: . PART A: back - RIGHT BACK CYST PART B: back - LEFT BACK CYST . 01 Diagnosis: A. RIGHT BACK, EXCISION: Epidermal inclusion cyst and overlying seborrheic keratosis, pigmented and inflamed. . B. LEFT BACK, EXCISION: Epidermal inclusion cyst. MRV 03/12/2024 1733 Local . 01 Electronically signed: . Maria Del Rosario Hein MD, Dermatopathologist NPI- [id number] . 01 Gross description: . A. Received in formalin with two identifiers and right back cyst, is a disrupted cystic structure measuring 4.8 x 3.9 x 3.4 cm with a partially attached ellipse of skin measuring 4.9 x 1.0 cm. The cutaneous surface has a pigmented, roughened, raised lesion measuring 1.0 x 0.8 cm and grossly approaching both skin margins. A second pigmented, flat lesion measures 0.4 x 0.3 cm, and grossly approaching one margin. A third, small, pigmented area measures 0.1 x 0.1 x 0.1 cm. The cyst contains henry, grumous material. Die Maker Trim sections are submitted as follows: A1: Cyst wall. A2-A4: Three pigmented lesion in individual cassettes. B. Received in formalin with two identifiers and left back cyst, is a cystic structure measuring 3.1 x 2.6 x 2.6 cm with an attached unoriented ellipse of skin measuring 2.3 x 1.1 cm. The margin is inked green, and sectioning reveals a cyst to contain henry, grumous material. A players club representative section is submitted in B1. ([id number]) /MRV 03/11/2024 0957 Local . 01 Pathologist provided ICD-10: L82.0, L72.0 . 01 CPT . 070229, 330693 Specimen Comment: A courtesy copy of this report has been sent to [phone] Performed at: 01 [facility] [address] [place] [address], [place], [place] [id number] MD Kelton Barnett MD Phone: [phone]
--- NOTE | 2024-03-09 12:11 | PM.PREOP ---
Pre-operative Note COVID-19 COVID-19 status: Not tested Interval Note History & Physical reviewed/Exam performed by Physician: Yes Changes to H&P: No ASA Class (for procedural sedation): III
[2024-03-09] MEDS: ACETAMINOPHEN 325 MG TABLET 975 MG PO (12:25)
[2024-03-09] MEDS: LACTATED RINGERS 1,000 ML 42 ML IV (12:26)
--- NOTE | 2024-03-09 13:04 | SUR.OPER ---
Prone on padded OR bed, head in foam head support, gel chest rolls, gel pad under knees, pillow under lower legs, toes free of pressure, arms secured on padded arm boards at <90 degrees abduction. Safety belt at thigh.
[2024-03-09] MEDS: BUPIVACAINE 0.5% (PF) 30 ML, EPINEPHrine 0.15 MG INJ (13:08)
--- NOTE | 2024-03-09 13:35 | PM.OP.1 ---
Operative Date/Time/Diagnoses Date of procedure: 03/09/24 Time of procedure: 13:35 Pre-op diagnosis: Bilateral back masses Post-op diagnosis: same Procedure & Clinicians Procedure: Excisional biopsy of bilateral back masses Same procedure as scheduled: Yes Surgeon: Fan Morel Repair Order Clerk: Michael Carranza Anesthesia Type: General Operative Notes Procedure in detail: The patient is a 63-year-old right upper back mass and left lower back mass. She desired excisional biopsy. Consent was obtained in the preoperative area and masses were marked. The patient was brought to the operating room, placed table in the supine position and general endotracheal anesthesia was induced. The patient was positioned prone on the OR table and all pressure points were padded. The back was prepped and draped in the usual fashion and a time-out was performed. Because there was a large pigmented skin lesion just inferior to the right upper back mass a 6 cm ellipse of skin was excised to include the lesion which appeared to be a seborrheic keratosis. Dissection was then carried down to the mass itself which appeared to be a sebaceous cyst. The capsule did rupture at 1 point during the dissection and some thick cheesy substance was noted to extrude through the tear in the cyst wall. This was collected with a dry gauze. The rest of the cyst was excised with Metzenbaum scissors. The cyst was a proximally 5 cm in diameter. The wound cavity was then irrigated and a few bleeders were cauterized. Additional local was injected into deep tissue. We then turned to the left lower back mass which appeared to be another smaller sebaceous cyst. A 4 cm ellipse of skin was taken because it was felt that the cyst likely pressed up against the dermis there. This time the entire cyst was able to be excised without violating the cyst wall. This cyst was a proximally 3 cm in diameter. The wound cavity was irrigated and additional local was injected into the deep tissue. We then closed both incisions with a combination of 3-0 Vicryl dermal sutures and 2-0 nylon mattress sutures. EBL: 10 mL Specimens: Right back cyst, left back cyst Michael SHEFFIELD provided assistance with exposure, retraction and closure of incisions. Post-operative Condition: stable Disposition: PACU
[2024-03-09] MEDS: OXYCODONE IR 5 MG TABLET PO (14:02)
== END 2024-03-09 14:48 | disposition home or self-care (01) ==
PROVIDERS: Family Provider Physician Assistant; PCP Registered Nurse Diabetes Educator; Referring Provider Surgery; Visit Provider Surgery
PROC: (CPT 11406; principal; 2024-03-09 13:00)
DX: L82.0 Inflamed seborrheic keratosis (principal); L72.0 Epidermal cyst
CPT/HCPCS: 11406; 11403; 12034; J0171; J0330; J1100; J1885; J2250; J2405; J2704; J3010

== ENCOUNTER → 2024-03-22 09:41 | Outpatient (CLI) | payer OTHER, SELFPAY ==
[2022-12-05 12:35] VITALS: BMI 44.4
--- NOTE | 2024-03-22 09:42 | DI.CT.S_ITS ---
PROCEDURE: CT CHEST WO CON INDICATIONS: f/u on xray findings, chronic SOB, [facility] TECHNIQUE: Noncontrast 5 mm thick sections acquired from the pulmonary apices to the posterior costophrenic angles. 1 mm lung window, 5 mm thick coronal and sagittal and 7 mm axial MIP reformats were then acquired. For radiation dose reduction, the following was used: automated exposure control, adjustment of mA and/or kV according to patient size. COMPARISON: [facility], , XR CHEST 2V, 03/02/2024, 16:57. FINDINGS: Image quality: Diagnostic. Lower Neck: No enlarged lymph nodes. Thyroid: No thyroid nodules which require sonographic follow up, per consensus guidelines. Axillae: No enlarged lymph nodes. Chest Wall: Right paramedian mid back subcutaneous collection measuring 3 x 2.2 cm, (2/). This measures fluid density with a small focus of nondependent gas and is in keeping with recent surgical site. This is located superficial to the underlying musculature. Left paramedian lower back subcutaneous nodule measuring 1.9 x 1.6 cm, (2/47). This is located just deep to the skin. Bones: Unremarkable. Lungs and Pleura: No pneumothorax or pleural effusions. No consolidation or suspicious nodules. Heart: Heart size is normal. Mild coronary artery calcifications. No pericardial effusion. Thoracic Vessels: The aorta and pulmonary arteries demonstrate normal size. Mediastinum and Kamille: No enlarged lymph nodes. Esophagus: No wall thickening. No hiatal hernia. Upper Abdomen: Visualized upper abdomen solid organs and bowel loops appear normal. Post cholecystectomy. IMPRESSION: 1. Right mid back subcutaneous collection measuring 3 cm. This is in keeping with the surgical site and most likely represents a small seroma. Abscess cannot be excluded. 2. Left lower back subcutaneous nodule measuring 1.9 cm. This could represent a small sebaceous cysts. 3. Lungs are clear. No adenopathy. Dictated by: Todd Anderson M.D. on 03/22/2024 at 11:30 Approved by: Todd Anderson M.D. on 03/22/2024 at 11:39
== END ==
PROVIDERS: Family Provider Physician Assistant; PCP Registered Nurse Diabetes Educator; Referring Provider Physician Assistant; Visit Provider Physician Assistant
DX: I25.10 Atherosclerotic heart disease of native coronary artery without angina pectoris (principal); R93.89 Abnormal findings on diagnostic imaging of other specified body structures; J44.1 Chronic obstructive pulmonary disease with (acute) exacerbation; R06.02 Shortness of breath; R22.2 Localized swelling, mass and lump, trunk; F17.200 Nicotine dependence, unspecified, uncomplicated
CPT/HCPCS: 71250

== ENCOUNTER → 2024-04-19 14:43 | Outpatient (CLI) | payer OTHER, SELFPAY ==
[2022-12-05 12:35] VITALS: BMI 44.4
[2024-04-12 11:13] VITALS: BMI 44.4
--- NOTE | 2024-04-19 14:43 | DI.ECHO.S_ITS ---
[place] [facility]---------+ [facility] : : [id number] : [place] : : [id number] : : Phone: [phone] Echocardiogram Report + + :Name: AUTUMN ISAACS Study Date: 04/19/2024 Height: 62 in : :Hospital ReadingLocation: Weight: 265 lb : : Gender: Female BSA: 2.2 m2 : :: 1960 Age: 64 yrs BP: 125/95 mmHg: :Reason For Study: CHRONIC SHORTNESS OF BREATH : :Ordering Physician: IFEANYI, : :JEAN MARIE Performed By: Daquan Clarke : :Referring: SHEELA SUGGS : + + Interpretation Summary The study quality was technically difficult. The left ventricle is grossly normal size. The ejection fraction is estimated to be 60-65%. The left atrium is mildly dilated. No significant valvular abnormality. Procedure: A two-dimensional transthoracic echocardiogram with color flow and Doppler was performed. Images from the parasternal window were difficult to obtain and are suboptimal in quality. The study quality was technically difficult. The study quality was technically limited. There is no prior echocardiogram noted for this patient. The heart rate ranged between 85-104 bpm during the study. Left Ventricle: The left ventricle is grossly normal size. The ejection fraction is estimated to be 60-65%. There are no obvious focal wall motion abnormalities noted but poor endocardial definition reduces the sensitivity for the detection of such. Diastolic parameters suggest a relaxation abnormality of the left ventricle, consistent with probable normal filling pressures. Right Ventricle: The right ventricle grossly appears normal in size with probable normal systolic function. Atria: The left atrium is mildly dilated. Right atrial size is normal. The interatrial septum grossly appears intact with no obvious evidence for an atrial septal defect. Mitral Valve: The mitral valve is normal. There is no mitral valve stenosis. There is trace mitral regurgitation. Aortic Valve: The aortic valve is not well visualized. There is no aortic valve stenosis. No aortic regurgitation is present. Tricuspid Valve: The tricuspid valve is not well visualized. There is no tricuspid stenosis. There is a trace or physiologic amount of tricuspid regurgitation. Pulmonary artery pressures cannot be estimated because of the lack of a measurable TR jet velocity. Pulmonic Valve: The pulmonic valve is not well visualized. Great Vessels: The aortic root is not well visualized. The ascending aorta could not be visualized. The inferior vena cava was not visualized. Pericardium/ Pleura There is no pericardial effusion. There is no pleural effusion. MMode/2D Measurements & Calculations LA A2 area: 18.7 cm2 RA long axis: 4.2 cm LA A4 area: 19.5 cm2 RA area: 10.6 cm2 LA length (vol): 4.9 cm RA vol: 22.5 ml LA vol: 63.2 ml RA : 10.5 ml/m2 LA vol index: 29.4 ml/m2 RVD1 (basal): 3.2 cm RVD2 (mid): 2.8 cm Doppler Measurements & Calculations Ao V2 max: 165.4 cm/sec LVOT Max Porfirio: 146.7 cm/sec Ao V2 mean: 121.7 cm/sec LV V1 max P.6 mmHg Ao max P.9 mmHg LV V1 VTI: 27.5 cm Ao mean P.4 mmHg sev ratio: 0.81 Ao V2 VTI: 33.8 cm MV E max porfirio: 93.7 cm/sec TR max porfirio: 276.2 cm/sec MV A max porfirio: 117.1 cm/sec TR max P.5 mmHg MV E/A: 0.80 Med Peak E' Porfirio: 5.1 cm/sec E/E' med: 18.4 Lat Peak E' Porfirio: 5.3 cm/sec E/E' lat: 17.6 E/e' average: 18.0 MV dec time: 0.25 sec Electronically signed by: Johanny Coronado on Reading Physician:04/19/2024 07:58 PM
== END ==
PROVIDERS: Family Provider Physician Assistant; PCP Registered Nurse Diabetes Educator; Referring Provider Physician Assistant; Visit Provider Physician Assistant
DX: R06.02 Shortness of breath (principal); J44.9 Chronic obstructive pulmonary disease, unspecified; R93.89 Abnormal findings on diagnostic imaging of other specified body structures
CPT/HCPCS: 93306

== ENCOUNTER 2024-05-06 06:44 | Day surgery (SDC) | payer OTHER, SELFPAY ==
[2022-12-05 12:35] VITALS: BMI 44.4
[2024-04-12 11:13] VITALS: BMI 44.4
[2024-05-06 07:14] VITALS: BP 141/80; PULSE 79; RESP 18; TEMP 36.2; O2SAT 97
[2024-05-06] MEDS: LACTATED RINGERS 1,000 ML 42 ML IV (07:28)
--- NOTE | 2024-05-06 07:31 | PM.HP.1 ---
History of Present Illness History of Present Illness Date Patient Seen: 05/06/24 Time Patient Seen: 07:31 Chief complaint: SDC Narrative: Lashonda is a 64-year-old woman who has a history of advanced colon polyps. Last colonoscopy was in 2017 and she was recommended to have a 3 year follow up. COUNT INCLUDES THE [facility] Medical History (Updated 04/27/24 @ 15:11 by Lissa Troy MD) Vapes nicotine containing substance Easy bruisability GERD (gastroesophageal reflux disease) Pneumonia Asthma HLD (hyperlipidemia) HTN (hypertension) Recurrent UTI Genitourinary syndrome of menopause BMI 40.0-44.9, adult COVID-19 virus infection (11/14/22) Chronic hip pain Chronic, continuous use of opioids Chronic low back pain with sciatica Surgical History History of partial hysterectomy (1995) Hx of tubal ligation (1986) Hx of cholecystectomy (1986) Hx of tonsillectomy (1962) History of bladder surgery (1962) History of total left hip replacement (12/05/22) Status post arthroscopy Social History household members: spouse and family Smoking Status: Current some day smoker Tobacco: How many years used: 40 quit status: considering quitting second hand exposure: No alcohol intake: current substance use type: does not use Meds Home Medications and Allergies Home Medications Medication Instructions Recorded Confirmed Type naproxen 500 mg tablet (Naprosyn) 500 mg PO BIDCC PRN pain #180 tabs 08/06/16 05/06/24 Rx vitamin B complex (B 1 tab PO QDAY ##0 05/08/17 05/06/24 History Complex-Vitamin B12 tablet) DuoNeb 1 each inhalation Q4HP PRN 06/08/18 04/27/24 Rx shortness of breath #50 vials ascorbic acid (vitamin C) 500 mg 500 mg PO DAILY 12/16/18 05/06/24 History tablet cholecalciferol (vitamin D3) 25 1,000 unit PO DAILY 12/16/18 05/06/24 History mcg (1,000 unit) capsule ipratropium 0.5 mg-albuterol 3 mg 3 ml inhalation Q4-6H PRN 09/09/22 05/06/24 Rx (2.5 mg base)/3 mL nebulization shortness of breath or wheezing soln #180 mL estradiol 10 mcg vaginal tablet 10 mcg vaginal DAILY #30 tabs 09/24/23 05/06/24 Rx (Vagifem) lidocaine 5 % topical patch 3 patch topical DAILY #90 ea 09/24/23 05/06/24 Rx pseudoephedrine HCl 60 mg tablet 60 mg PO Q6H PRN ear plugged 09/24/23 05/06/24 Rx sensation #30 tabs bupropion HCl 150 mg tablet,12 hr 300 mg (2 x 150 mg) PO QDAY #180 11/08/23 05/06/24 Rx sustained-release (Wellbutrin SR) tabs cyclobenzaprine 10 mg tablet 10 mg PO BEDTIME PRN muscle spasm 11/08/23 05/06/24 Rx #90 tabs hydrochlorothiazide 25 mg tablet 25 mg PO QDAY PRN edema #90 tabs 11/08/23 05/06/24 Rx methocarbamol 750 mg tablet 1,500 mg (2 x 750 mg) PO BID PRN 11/08/23 05/06/24 Rx muscle spasm #360 tabs metoprolol succinate 25 mg 37.5 mg (1.5 x 25 mg) PO BID #270 11/08/23 05/06/24 Rx tablet,extended release 24 hr tabs (Toprol XL) omeprazole 20 mg capsule,delayed 20 mg PO DAILY #90 caps 11/08/23 05/06/24 Rx release rosuvastatin 20 mg tablet 20 mg PO DAILY #90 tabs 11/08/23 05/06/24 Rx fluticasone propionate 230 2 puff inhalation BID #36 grams 01/28/24 05/06/24 Rx mcg-salmeterol 21 mcg/actuation HFA inhaler (Advair HFA) albuterol sulfate 90 mcg/actuation 2 puff inhalation Q4-6HP PRN 02/02/24 05/06/24 Rx aerosol inhaler (Ventolin HFA) shortness of breath #2 ea hydrocodone 7.5 mg-acetaminophen 1 tab PO Q12H PRN pain (scale 02/02/24 05/06/24 Rx 325 mg tablet score 7-10) #90 tabs budesonide-formoterol HFA 160 2 puff inhalation BID #10.2 grams 03/18/24 05/06/24 Rx mcg-4.5 mcg/actuation aerosol inhaler (Breyna) Allergies Allergy/AdvReac Type Severity Reaction Status Date / Time venom-honey bee Allergy Intermediate SWELLING Verified 05/06/24 07:16 [BEE VENOM (HONEY BEE)] ALL OVER BODY metformin [METFORMIN] AdvReac Severe DIARRHEA Verified 05/06/24 07:16 IVP DYE AdvReac Severe ANAPHYLAXIS Uncoded 05/06/24 07:16 Exam Vital Signs (past 8 hours): - 05/06/24 07:14 Temperature 97.1 F L Pulse Rate 79 Respiratory Rate 18 Blood Pressure 141/80 H Pulse Oximetry 97 Oxygen Delivery Method Room Air Oxygen Delivery Method Room Air Const General: No acute distress Resp Effort & Inspection: normal respiratory effort Assessment & Plan Assessment and plan (1) Tubular adenoma of colon: Status: Resolved Plan We reviewed the risks and benefits of colonoscopy for history of polyps and she would like to proceed.
[2024-05-06 08:05] VITALS: BP 127/83; PULSE 92; RESP 16; TEMP 36.2; O2SAT 95
--- NOTE | 2024-05-06 08:07 | PM.OP.COLON ---
Operative Date/Time/Diagnoses Date of procedure: 05/06/24 Time of procedure: 08:07 Pre-op diagnosis: History of polyps Post-op diagnosis: same Procedure & Clinicians Study performed: Colonoscopy Same procedure as scheduled: Yes Surgeon: Fan Morel Procedure Notes Procedure in detail: Surgeon: Fan Morel MD Anesthesia: Jame Starr D.O. Procedure: The patient was brought to the endoscopy suite, placed in left lateral decubitus position. The patient was connected to monitoring devices. A time-out was performed. Sedation was administered. Once the patient was adequately sedated, a digital rectal exam was performed and was normal. The scope was then inserted and advanced to the cecum where the appendiceal orifice was identified and photographed. The scope was then slowly withdrawn over greater than 6 minutes. The mucosa was thoroughly inspected. No abnormalities were found. The scope was retroflexed in the rectum. The scope was straightened and removed. The patient was awakened and brought to recovery. Scope withdrawal time: 7 minutes Sedation time: 12 minutes EBL: 0 Findings: Normal colon Post-procedure Recommendations: Colonoscopy in 10 years Disposition: PACU
[2024-05-06 08:10] VITALS: BP 121/77; PULSE 88; RESP 15; O2SAT 97
[2024-05-06 08:15] VITALS: BP 123/78; PULSE 90; RESP 19; O2SAT 95
== END 2024-05-06 08:36 | disposition home or self-care (01) ==
PROVIDERS: Family Provider Physician Assistant; PCP Registered Nurse Diabetes Educator; Referring Provider Surgery; Visit Provider Surgery
PROC: 0DJD8ZZ Inspection of Lower Intestinal Tract, Via Natural or Artificial Opening Endoscopic (ICD-10-PCS; CPT 45378; principal; 2024-05-06 07:45)
DX: Z12.11 Encounter for screening for malignant neoplasm of colon (principal); Z86.010 Personal history of colon polyps
CPT/HCPCS: 45378; J2704

== ENCOUNTER → 2024-05-13 16:16 | Outpatient (CLI) | payer OTHER, SELFPAY ==
[2024-04-12 11:13] VITALS: BMI 44.4
== END ==
PROVIDERS: Family Provider Physician Assistant; PCP Registered Nurse Diabetes Educator; Referring Provider Internal Medicine; Visit Provider Internal Medicine
DX: R06.02 Shortness of breath (principal); J44.89 Other specified chronic obstructive pulmonary disease; Z87.891 Personal history of nicotine dependence; R94.2 Abnormal results of pulmonary function studies
CPT/HCPCS: 94010; 94726; 94729

== ENCOUNTER → 2024-07-20 16:59 | Outpatient (CLI) | payer OTHER, SELFPAY ==
[2024-04-12 11:13] VITALS: BMI 44.4
[2024-07-20 19:35] LABS: Ur Creatinine Normal (Normal); Ur Specific Gravity Normal (Normal); Urine Cocaine Negative (Negative); Urine Tetrahydrocannabinol Negative (Negative); Urine pH Normal (Normal)
[2024-07-20 19:36] LABS: UR Morphine/Opiate cutoff 300 Positive (Negative); Urine Amphetamines Negative (Negative); Urine Barbiturates Negative (Negative); Urine Benzodiazepines Negative (Negative); Urine MDMA Negative (Negative); Urine Methadone Negative (Negative); Urine Methamphetamines Negative (Negative); Urine Oxycodone Negative (Negative); Urine Phencyclidine Negative (Negative); Urine Tricyclic Antidepressant Positive (Negative)
== END ==
PROVIDERS: Family Provider Physician Assistant; PCP Registered Nurse Diabetes Educator; Visit Provider Registered Nurse Diabetes Educator
DX: Z51.81 Encounter for therapeutic drug level monitoring (principal)
CPT/HCPCS: 80305